=== PATIENT | female | born 1950 | race African-American/Black ===

== ENCOUNTER → 2017-02-17 | Outpatient (CLI) | payer OTHER ==
[~2017-02-17] MED LIST: AMARYL2 M1 PO; ASPIR 8181 MG PO; CALCIUM + D3 E1 EACH PO; FAMOTIDINE20 MG PO; GLUCOPHAGE XR750 MG PO; KEFLEX500 M1 PO; LOSARTAN-HCTZ1 EAC3 PO; PREDNISONE 20 M20 MG PO
== END ==
LOC: RAD 09:02
DX: Z12.31 Encounter for screening mammogram for malignant neoplasm of breast (principal)

== ENCOUNTER 2017-05-12 19:38 | Emergency (ER) | payer OTHER ==
[~2017-05-12] VITALS: Ht 154.9 cm; Wt 71.2 kg
[2017-05-12] MEDS ORDERED: LUMIGAN2.5 M1 OP (19:52)
[2017-05-12] MEDS ORDERED: COMBIGAN EYE DR10 ML OPHTHALMIC (19:53)
[2017-05-12] MEDS ORDERED: SUDAFED PE PRE1 EAC1 PO (19:54)
[2017-05-12] MEDS ORDERED: FLONASE 0.05%50 MCG NASAL (21:18)
[2017-05-12] MEDS ORDERED: REGLAN 10 MG TA10 MG PO (21:18)
[2017-05-12 21:29] VITALS: BP 146/83
== END 2017-05-12 21:28 | disposition home or self-care (01) ==
LOC: ER 19:38
DX: R51 Headache (principal); J32.9 Chronic sinusitis, unspecified; I10 Essential (primary) hypertension; E11.9 Type 2 diabetes mellitus without complications; Z90.710 Acquired absence of both cervix and uterus; Z98.890 Other specified postprocedural states